=== PATIENT | female | born 1975 | race Caucasian/White ===

== ENCOUNTER 2017-07-31 15:21 | Emergency (ER) | payer MEDICAID, OTHER ==
[2017-07-31 16:19] VITALS: RESP 18; O2SAT 99
[2017-07-31] MEDS ORDERED: Albuterol-Ipratrop 3 mg / 0.5 (3 ml) UD INH STA (18:26)
--- NOTE | 2017-07-31 18:33 | C.PDOC ---
History Of Present Illness 42-year-old female, PMHx includes Diabetes and Asthma, presents to the emergency department with complaints of shortness of breath x1 week. Patient states she is using her son's Ventolin at home for the past 2-3 days with relief. She also notes pain in her chest that worsens with cough. She reports "brownish-black" phlegm. Patient was seen in [place] [facility] on 07/29 and had a cardiac workup with negative Troponin (x2). CXR was read as normal. Patient comes in today requesting antibiotics for her symptoms. Time Seen by Provider: 07/31/17 17:37 Chief Complaint (Nursing): Chest Pain History Per: Patient History/Exam Limitations: no limitations Onset/Duration Of Symptoms: Days Current Symptoms Are (Timing): Still Present Severity: Moderate Past Medical History Reviewed: Historical Data, Nursing Documentation, Vital Signs Vital Signs: Last Vital Signs Temp 98.0 F 07/31/17 16:16 Pulse 102 H 07/31/17 16:16 Resp 18 07/31/17 16:16 BP 104/74 07/31/17 16:16 Pulse Ox 99 07/31/17 18:36 - Medical History PMH: Anemia, Diabetes, HTN, Hypercholesterolemia Surgical History: (x2) Family History: States: No Known Family Hx - Social History Hx Tobacco Use: No Hx Alcohol Use: No Hx Substance Use: No - Immunization History Hx Tetanus Toxoid Vaccination: No Hx Influenza Vaccination: Yes Hx Pneumococcal Vaccination: No Review Of Systems Constitutional: Negative for: Fever, Chills Cardiovascular: Positive for: Chest Pain Respiratory: Positive for: Cough, Shortness of Breath, Sputum Gastrointestinal: Negative for: Nausea, Vomiting Musculoskeletal: Negative for: Back Pain Skin: Negative for: Rash Neurological: Negative for: Weakness, Numbness, Headache, Dizziness Physical Exam - Physical Exam Appears: Non-toxic, No Acute Distress Skin: Normal Color, Warm, Dry, No Rash Head: Normacephalic Eye(s): bilateral: PERRL Nose: Normal Oral Mucosa: Moist Lips: Normal Appearing Neck: Normal ROM Chest: Symmetrical, Tenderness (Reproducible, parasternal) Cardiovascular: Rhythm Regular, No Murmur Respiratory: Normal Breath Sounds, No Accessory Muscle Use, No Rales, No Rhonchi , No Wheezing Extremity: Normal ROM, No Deformity, No Swelling Neurological/Psych: Oriented x3, Normal Speech ED Course And Treatment O2 Sat by Pulse Oximetry: 99 (RA) Pulse Ox Interpretation: Normal Progress Note: Peak flow ordered. Patient treated with Duoneb and PO Motrin Reevaluation Time: 20:50 Reassessment Condition: Improved (Lungs clear and without respiratory distress.) Disposition Counseled Patient/Family Regarding: Diagnosis, Need For Followup, Rx Given - Disposition Referrals: Rosette Taylor MD [Staff Provider] - Disposition: HOME/ ROUTINE Disposition Time: 20:51 Condition: STABLE Prescriptions: Azithromycin [Zithromax] 250 mg PO DAILY #6 tab Instructions: Acute Bronchitis Forms: [employer] (Serbian) - Clinical Impression Clinical Impression: Bronchitis - Scribe Statement The provider has reviewed the documentation as recorded by the Scribe (Freya Mills) All medical record entries made by the Scribe were at my direction and personally dictated by me. I have reviewed the chart and agree that the record accurately reflects my personal performance of the history, physical exam, medical decision making, and the department course for this patient. I have also personally directed, reviewed, and agree with the discharge instructions and disposition.
[2017-07-31] MEDS ORDERED: Albuterol-Ipratrop 3 mg / 0.5 (3 ml) UD ONE (18:41)
[2017-07-31 21:09] VITALS: BP 121/71; PULSE 78; TEMP 98.9
--- NOTE | 2017-08-01 18:54 | CARD ---
APPROVED REPORT EKG Measurement Heart [id number] <Conclusion> Sinus tachycardia Otherwise normal ECG
== END 2017-07-31 21:10 | disposition home or self-care (01) ==
LOC: C.ER 15:21
DX: J40 Bronchitis, not specified as acute or chronic (principal); I10 Essential (primary) hypertension; E78.00 Pure hypercholesterolemia, unspecified; E11.9 Type 2 diabetes mellitus without complications

== ENCOUNTER 2017-08-21 19:32 | Emergency (ER) | payer MEDICAID ==
[2017-08-21 19:42] VITALS: TEMP 97.6
--- NOTE | 2017-08-21 20:01 | C.PDOC ---
History Of Present Illness 42 year old female presents to the ED c/o headache that has been on and off for the past week. Patient is also c/o pain to the base of her neck. Patient denies nausea, vomiting, fever, head injury, fall, trauma, blurry vision. Chief Complaint (Nursing): Headache History Per: Patient History/Exam Limitations: no limitations Onset/Duration Of Symptoms: Days Current Symptoms Are (Timing): Still Present Quality: "Pain" Preceeding Symptoms: None Associated Symptoms: denies: Nausea, Vomiting Recent travel outside of the [place]: No Additional History Per: Patient Past Medical History Reviewed: Historical Data, Nursing Documentation, Vital Signs Vital Signs: Last Vital Signs Temp 97.6 F 08/21/17 19:38 Pulse 84 08/21/17 19:38 Resp 20 08/21/17 19:38 BP 114/76 08/21/17 19:38 Pulse Ox 100 08/21/17 22:22 - Medical History PMH: Anemia, Diabetes, HTN, Hypercholesterolemia Surgical History: (x2) Family History: States: Unknown Family Hx - Social History Hx Tobacco Use: No Hx Alcohol Use: No Hx Substance Use: No - Immunization History Hx Tetanus Toxoid Vaccination: No Hx Influenza Vaccination: Yes Hx Pneumococcal Vaccination: No Review Of Systems Constitutional: Negative for: Fever, Chills Eyes: Negative for: Vision Change Cardiovascular: Negative for: Chest Pain Respiratory: Negative for: Cough, Shortness of Breath Gastrointestinal: Negative for: Nausea, Vomiting, Abdominal Pain Musculoskeletal: Positive for: Neck Pain Skin: Negative for: Rash Neurological: Positive for: Headache. Negative for: Weakness, Numbness Physical Exam - Physical Exam Appears: Non-toxic, No Acute Distress Skin: Normal Color, Warm, Dry Head: Atraumatic, Normacephalic, Tenderness (base of the skull) Eye(s): bilateral: Normal Inspection Nose: No Discharge Oral Mucosa: Moist Throat: Normal, No Erythema, No Exudate Neck: Normal ROM, No Step Off Deformity, Supple, Other (tenderness B/L lateral ) Chest: Symmetrical Cardiovascular: Rhythm Regular, No Murmur Respiratory: Normal Breath Sounds, No Rales, No Rhonchi, No Wheezing Gastrointestinal/Abdominal: Normal Exam, No Soft, No Tenderness, No Guarding, No Rebound Extremity: Normal ROM, No Tenderness, No Swelling Neurological/Psych: Oriented x3, Normal Speech, Normal Motor, Normal Sensation Gait: Steady ED Course And Treatment - Laboratory Results Result Diagrams: 08/21/17 20:37 08/21/17 20:37 O2 Sat by Pulse Oximetry: 100 (On RA) Pulse Ox Interpretation: Normal - CT Scan/US CT head Other Rad Studies (CT/US): Read By Radiologist, Radiology Report Reviewed CT/US Interpretation: EXAM: CT Head Without Intravenous Contrast. EXAM DATE/ TIME: Exam ordered 08/21/2017 7:58 PM. CLINICAL HISTORY: 42 years old, female ; Pain; Headache; Headache not specified. TECHNIQUE: Axial computed tomography images of the head/brain without intravenous contrast. All CT scans at. this facility use one or more dose reduction techniques, viz.: automated exposure control; ma/kV. adjustment per patient size (including targeted exams where dose is matched to indication; i.e. head);. or iterative reconstruction technique. COMPARISON: No relevant prior studies available. FINDINGS: Brain : Basal ganglia calcification seen on the right. No hemorrhage. No significant white matter. disease. Ventricles: Unremarkable. No ventriculomegaly. Bones/ joints: Unremarkable. No acute fracture. Soft tissues: Unremarkable. Sinuses: Unremarkable as visualized. No acute sinusitis. Mastoid air cells: Unremarkable as visualized. No mastoid effusion. IMPRESSION:No acute findings. Thank you for allowing us to participate in the care of your patient. Dictated and Authenticated by: Irene Mattson MD. 08/21/2017 8:45 PM Eastern Time ([place] & [place]) Medical Decision Making Medical Decision Making: Impression: headache Plan: * CT head * Lab * Toradol 30 mg IVP * UA Disposition Counseled Patient/Family Regarding: Diagnosis - Disposition Referrals: [facility] [Outside] Disposition: HOME/ ROUTINE Disposition Time: 22:18 Condition: STABLE Prescriptions: Cyclobenzaprine [Cyclobenzaprine HCl] 10 mg PO TID #20 tab Naproxen 375 mg PO TIDPC #20 tablet Instructions: Cervical Muscle Strain, Headache, Adult (DC) Forms: [facility] (Yakut) - POA Present On Arrival: None - Clinical Impression Clinical Impression: Headache, Myofascial pain syndrome, Cervical myofascial strain - Scribe Statement The provider has reviewed the documentation as recorded by the Scribe Herson Kuo All medical record entries made by the Scribe were at my direction and personally dictated by me. I have reviewed the chart and agree that the record accurately reflects my personal performance of the history, physical exam, medical decision making, and the department course for this patient. I have also personally directed, reviewed, and agree with the discharge instructions and disposition.
[2017-08-21 20:42] LABS: BASO % 0.4 % (0.0-2.0); EOS # 0.1 K/uL (0.0-0.7); EOS % 1.7 % (0.0-4.0); HEMOGLOBIN 11.5 g/dL (11.0-16.0); LYMPH # 3.8 K/uL (1.0-4.3); LYMPH % 46.8 % (20.0-40.0); MEAN CELL VOLUME 76.7 fL (81.0-99.0); MEAN CORPUSCULAR HEMOGLOBIN 24.8 pg (27.0-31.0); MEAN CORPUSCULAR HGB CONC 32.4 g/dL (33.0-37.0); MEAN PLATELET VOLUME 7.7 fL (7.2-11.7); MONO # 0.8 K/uL (0.0-0.8); MONO % 9.4 % (0.0-10.0); NEUT # 3.4 K/uL (1.8-7.0); NEUT % 41.7 % (50.0-75.0); RBC 4.63 Mil/uL (3.80-5.20); RED CELL DISTRIBUTION WIDTH 15.1 % (11.5-14.5); WHITE BLOOD COUNT 8.1 K/uL (4.8-10.8)
--- NOTE | 2017-08-21 20:46 | CT ---
EXAM: CT Head Without Intravenous Contrast EXAM DATE/TIME: Exam ordered 08/21/2017 7:58 PM CLINICAL HISTORY: 42 years old, female; Pain; Headache; Headache not specified TECHNIQUE: Axial computed tomography images of the head/brain without intravenous contrast. All CT scans at this facility use one or more dose reduction techniques, viz.: automated exposure control; ma/kV adjustment per patient size (including targeted exams where dose is matched to indication; i.e. head); or iterative reconstruction technique. COMPARISON: No relevant prior studies available. FINDINGS: Brain: Basal ganglia calcification seen on the right. No hemorrhage. No significant white matter disease. Ventricles: Unremarkable. No ventriculomegaly. Bones/joints: Unremarkable. No acute fracture. Soft tissues: Unremarkable. Sinuses: Unremarkable as visualized. No acute sinusitis. Mastoid air cells: Unremarkable as visualized. No mastoid effusion. IMPRESSION: No acute findings.
[2017-08-21 20:53] LABS: ALBUMIN 3.9 g/dL (3.5-5.0); CALCIUM 8.5 mg/dl (8.6-10.4); GFR AFRICAN-AMERICAN > 60; GFR NON-AFRICAN AMERICAN > 60
[2017-08-21 21:14] LABS: ALT/SGPT 25 U/L (9-52); AST/SGOT 21 U/L (14-36); BLOOD UREA NITROGEN 9 mg/dL (7-17)
[2017-08-21 22:29] VITALS: BP 118/69; PULSE 79; RESP 18; O2SAT 99
== END 2017-08-21 22:32 | disposition home or self-care (01) ==
LOC: C.ER 19:32
DX: R51 Headache (principal); S16.1XXA Strain of muscle, fascia and tendon at neck level, initial encounter; X58.XXXA Exposure to other specified factors, initial encounter; M79.1 Myalgia
CPT/HCPCS: 70450; 80053; 84703; 85025; 96374; 99285; J1885

== ENCOUNTER 2018-01-26 12:45 | Emergency (ER) | payer MEDICAID ==
[2018-01-26] MEDS ORDERED: Sodium Chloride 0.9% 1,000 ML IV ONE ×2 (13:44→16:50)
[2018-01-26 13:56] LABS: HCG,QUALITATIVE URINE NEGATIVE (NEGATIVE)
[2018-01-26 14:17] LABS: BASO % 0.5 % (0.0-2.0); HEMOGLOBIN 12.2 g/dL (11.0-16.0); LYMPH # 1.4 K/uL (1.0-4.3); LYMPH % 24.2 % (20.0-40.0); MEAN CORPUSCULAR HEMOGLOBIN 24.9 pg (27.0-31.0); MEAN CORPUSCULAR HGB CONC 33.4 g/dL (33.0-37.0); MEAN PLATELET VOLUME 7.5 fL (7.2-11.7); MONO # 0.6 K/uL (0.0-0.8); MONO % 10.6 % (0.0-10.0); NEUT # 3.7 K/uL (1.8-7.0); NEUT % 64.7 % (50.0-75.0); RBC 4.89 Mil/uL (3.80-5.20); RED CELL DISTRIBUTION WIDTH 15.2 % (11.5-14.5); WHITE BLOOD COUNT 5.7 K/uL (4.8-10.8)
[2018-01-26 14:17] LABS: SQUAMOUS EPITHIAL 6 /hpf (0-5); URINE AMORPHOUS SEDIMENT RARE /ul (<OCC); URINE BACTERIA MOD (<OCC); URINE BILIRUBIN NEGATIVE (NEGATIVE); URINE BLOOD NEGATIVE (NEGATIVE); URINE CLARITY Turbid (Clear); URINE COLOR Amber (YELLOW); URINE GLUCOSE (UA) NORMAL (Normal); URINE LEUKOCYTE ESTERASE 1+ Leu/uL (Negative); URINE PROTEIN NEGATIVE (NEGATIVE); URINE UROBILINOGEN NORMAL mg/dL (0.2-1.0)
[2018-01-26 14:18] LABS: MEAN CELL VOLUME 74.5 fL (81.0-99.0)
[2018-01-26] MEDS ORDERED: Sodium Chloride 0.9% 1,000 ML ONE ×2 (14:28→16:53)
[2018-01-26 15:04] LABS: ALB/GLOB RATIO 1.1 (1.0-2.1); ALBUMIN 4.1 g/dL (3.5-5.0); ALT/SGPT 15 U/L (9-52); AST/SGOT 17 U/L (14-36); BLOOD UREA NITROGEN 10 mg/dL (7-17); CALCIUM 8.8 mg/dl (8.6-10.4); GFR NON-AFRICAN AMERICAN > 60; LIPASE 43 U/L (23-300)
--- NOTE | 2018-01-26 15:25 | C.PDOC ---
History Of Present Illness 42 year old female presents to the emergency department with complaints of upper abdominal pain, nausea, vomiting, diarrhea, and fever for the last two days. Patient denies dysuria, cough, runny nose, sore throat, flank pain. Time Seen by Provider: 01/26/18 13:31 Chief Complaint (Nursing): GI Problem History Per: Patient History/Exam Limitations: no limitations Onset/Duration Of Symptoms: Days (2) Current Symptoms Are (Timing): Still Present Location Of Pain/Discomfort: Other (upper abdomen) Quality Of Discomfort: "Pain" Associated Symptoms: Fever, Nausea, Vomiting, Diarrhea, Back Pain (flank). denies: Urinary Symptoms, Other (cough, runny nose, sore throat) Past Medical History Reviewed: Historical Data, Nursing Documentation, Vital Signs Vital Signs: Last Vital Signs Temp 99.2 F 01/26/18 16:39 Pulse 104 H 01/26/18 16:39 Resp 18 01/26/18 16:39 BP 113/75 01/26/18 16:39 Pulse Ox 97 01/26/18 16:45 - Medical History PMH: Anemia, Asthma, Diabetes, HTN, Hypercholesterolemia Surgical History: (x2) Family History: States: No Known Family Hx - Social History Hx Tobacco Use: No Hx Alcohol Use: No Hx Substance Use: No - Immunization History Hx Tetanus Toxoid Vaccination: No Hx Influenza Vaccination: No Hx Pneumococcal Vaccination: No Review Of Systems Except As Marked, All Systems Reviewed And Found Negative. Constitutional: Positive for: Fever ENT: Negative for: Nose Discharge, Throat Pain Respiratory: Negative for: Cough Gastrointestinal: Positive for: Nausea, Vomiting, Abdominal Pain, Diarrhea Musculoskeletal: Negative for: Back Pain (flank) Physical Exam - Physical Exam Appears: Non-toxic, In Acute Distress (moderate pain), Other (moaning) Skin: Warm, Dry Head: Atraumatic, Normacephalic Eye(s): bilateral: Normal Inspection Oral Mucosa: Moist Neck: Normal, Supple Chest: Symmetrical Cardiovascular: Rhythm Regular, Other (tachycardia) Respiratory: Normal Breath Sounds Gastrointestinal/Abdominal: Soft, Tenderness (epigastric, RUQ area), No Guarding , No Rebound, Other (obese) Neurological/Psych: Oriented x3, Normal Speech, Normal Cognition ED Course And Treatment - Laboratory Results Result Diagrams: 01/26/18 14:12 01/26/18 14:12 O2 Sat by Pulse Oximetry: 97 (RA) Pulse Ox Interpretation: Normal - CT Scan/US US Abdomen Other Rad Studies (CT/US): Read By Radiologist, Radiology Report Reviewed CT/US Interpretation: IMPRESSION: There is a small cyst seen at the right para renal space or exophytic off the right lobe liver close to the upper pole right kidney. This appears to anterior to be an intrarenal lesion. Consider follow- up CT with oral and intravenous contrast on elective basis. The remainder of the examination reflects only borderline hepatomegaly. Progress Note: Plan: Bloodwork. IV Fluids. Toradol 30mg IVP. Zofran 4mg IVP. US Abdomen Limited Disposition Counseled Patient/Family Regarding: Studies Performed, Diagnosis, Need For Followup, Rx Given - Disposition Referrals: Rosette Taylor MD [Staff Provider] - Disposition: HOME/ ROUTINE Disposition Time: 16:45 Condition: STABLE Additional Instructions: FOLLOW UP WITH YOUR DOCTOR IN 1-[address] SCAN WITH ORAL AND IV CONTRAST (ORDERED BY YOUR DOCTOR) FOR FURTHER EVALUATION OF YOUR KIDNEY CYST USE MEDICATIONS DIRECTED DRINK PLENTY OF CLEAR FLUIDS RETURN TO ER IF YOUR SYMPTOMS WORSEN Prescriptions: Cephalexin [Keflex] 500 mg PO BID #14 capsule Ondansetron [Zofran Odt] 4 mg PO Q8 PRN #10 odt PRN Reason: Nausea/Vomiting Instructions: Diarrhea in Adolescents and Adults, Urinary Tract Infection, Adult (DC), Nausea and Vomiting, Adult (DC) Forms: [facility] (Omani) Print Language: KAZAKH - POA Present On Arrival: None - Clinical Impression Clinical Impression: UTI (urinary tract infection), Nausea & vomiting, Diarrhea, Adrenal cyst - Scribe Statement The provider has reviewed the documentation as recorded by the Scribe (Andres Barajasqvi) Provider Attestation: All medical record entries made by the Scribe were at my direction and personally dictated by me. I have reviewed the chart and agree that the record accurately reflects my personal performance of the history, physical exam, medical decision making, and the department course for this patient. I have also personally directed, reviewed, and agree with the discharge instructions and disposition.
--- NOTE | 2018-01-26 15:48 | US ---
Date of service: 01/26/2018 HISTORY: RUQ, EPIGASTRIC PAIN R/O CHOLECYSTITIS COMPARISON: None. TECHNIQUE: Sonographic evaluation of the right upper quadrant of the abdomen. FINDINGS: LIVER: Measures 18.3 cm in length. There is a small echo lucency either exophytic off the liver or within the para renal space measuring 1.3 cm greatest dimension. Liver is borderline enlarged. GALLBLADDER: Unremarkable. No gallstones. COMMON BILE DUCT: Measures 2.7 mm. No stones. No dilatation. PANCREAS: Unremarkable as visualized. No mass. No ductal dilatation. RIGHT KIDNEY: Measures 12.2 cm in length. Normal echogenicity. No calculus, mass, or hydronephrosis. AORTA: No aneurysmal dilatation. IVC: Unremarkable. OTHER FINDINGS: None . IMPRESSION: There is a small cyst seen at the right para renal space or exophytic off the right lobe liver close to the upper pole right kidney. This appears to anterior to be an intrarenal lesion. Consider follow-up CT with oral and intravenous contrast on elective basis. The remainder of the examination reflects only borderline hepatomegaly.
[2018-01-26] MEDS ORDERED: cefTRIAXone IV 1 gm in Dextros 50 ML IV ONE (15:50)
[2018-01-26] MEDS ORDERED: cefTRIAXone 1 gm 1 GM/100 ML BAG IVPB ONE (16:15)
[2018-01-26 16:44] VITALS: O2SAT 97
--- NOTE | 2018-01-26 18:09 | CT ---
Date of service: 01/26/2018 PROCEDURE: CT Abdomen and Pelvis without intravenous contrast HISTORY: PERSISTENT PERIUMBILICAL ABD PAIN COMPARISON: Limited abdomen ultrasound 08/26/2017. TECHNIQUE: Helical CT of the abdomen and pelvis was performed without oral or intravenous contrast as per referring physician request. Contrast dose: None Radiation dose: Total exam DLP = 702.86 mGy-cm. This CT exam was performed using one or more of the following dose reduction techniques: Automated exposure control, adjustment of the mA and/or kV according to patient size, and/or use of iterative reconstruction technique. FINDINGS: LOWER THORAX: Cardiomegaly. Borderline pericardial effusion. No pleural effusion bilaterally. Trace bilateral basilar dependent atelectasis. LIVER: Unremarkable. No gross lesion or ductal dilatation. GALLBLADDER AND BILE DUCTS: Unremarkable. PANCREAS: Unremarkable. No gross lesion or ductal dilatation. SPLEEN: Unremarkable. ADRENALS: There is enlargement of the left adrenal gland with central calcifications and 2.4 x 2.1 cm with the left adrenal gland not clearly identified. KIDNEYS AND URETERS: No radiodense urolithiasis, perinephric fluid collection or obstructive uropathy is appreciate bilaterally. The bilateral ureters appear normal caliber overall. VASCULATURE: Unremarkable. No aortic aneurysm. BOWEL: Evaluation of the gastrointestinal tract is limited due the lack of oral contrast administration.. No obstruction. No gross mural thickening. APPENDIX: Upper limits normal caliber appendix without periappendiceal reaction. Appendicitis is not favored, however clinical correlation is recommended. PERITONEUM: Tiny umbilical hernia containing only fat. No free fluid. No free air. LYMPH NODES: Unremarkable. No enlarged lymph nodes. BLADDER: Unremarkable. REPRODUCTIVE: Unremarkable. BONES: No acute fracture. OTHER FINDINGS: None. IMPRESSION: 1. No radiodense urolithiasis, perinephric fluid collection or obstructive uropathy is appreciate bilaterally. The bilateral ureters appear normal caliber overall. 2. No bowel obstruction, measure edema, ascites or free intra peritoneal gas. The lack of oral contrast agents limits evaluation the bowel which nevertheless appears nonacute in its unenhanced state. Tiny umbilical hernia is identified containing only fat at this time. 3. Enlarged thickened right adrenal gland with central calcifications suspicious for possible right adrenal hypertrophy or possible sequelae from distant prior adrenal hemorrhage or possible post infectious or inflammatory change. Left renal gland is not identified. 4. Appendix appears thickened up to 9 mm particularly at a coil segment near its termination at the right lower quadrant. No peritonitis or reaction to suggest acute appendicitis. Appendicitis is not favored. Clinically correlate further.
[2018-01-26 18:38] VITALS: BP 111/74; PULSE 99; RESP 17; TEMP 99.1
== END 2018-01-26 18:37 | disposition home or self-care (01) ==
LOC: C.ER 12:45
DX: N39.0 Urinary tract infection, site not specified (principal); R11.2 Nausea with vomiting, unspecified; E27.8 Other specified disorders of adrenal gland
CPT/HCPCS: 74176; 76705; 80053; 81001; 83690; 84703; 85025; 87040; 87086; 96361; 96374; 96375; 99285; J0696; J1885; J2270; J2405; J7030